=== PATIENT | female | born 1985 ===

== ENCOUNTER 2020-12-23 13:30 | Emergency (ER) | payer SELFPAY ==
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
== END 2020-12-23 13:55 | disposition left against medical advice (07) ==
LOC: LL.ED 13:30
DX: S90.01XA Contusion of right ankle, initial encounter (principal); F19.10 Other psychoactive substance abuse, uncomplicated; W22.8XXA Striking against or struck by other objects, initial encounter
CPT/HCPCS: 99283; 99284